=== PATIENT | male | born 1960 | race African-American/Black ===

== ENCOUNTER 2019-12-17 16:11 | Emergency (ER) | payer MEDICARE, MEDICAID, SELFPAY ==
[2019-12-17] VITALS (13 sets, daily range): BP systolic 124–154; BP diastolic 65–77; PULSE 66–85; RESP 16–21; TEMP 36.7–38.1; O2SAT 95–100
--- NOTE | ~2019-12-17 | CT_ITS ---
EXAMINATION: CT chest wo con DATE: 12/17/2019 19:08 INDICATION: Cough and shortness of breath TECHNIQUE: Computed tomography (CT) of the chest was performed without intravenous contrast. The dose -length product (DLP) was 416.39 mGy-cm. Automated exposure control and iterative reconstruction tech nique were employed. COMPARISON: 09/20/2017 FINDINGS: There are patchy groundglass and airspace opacities in the lungs with a lower lobe predomin ance. There is no pleural effusion or pneumothorax. No pathologically enlarged thoracic lymph nodes a re identified. The heart size is normal. Calcified left hilar and mediastinal lymph nodes are consist ent with old granulomatous disease. There is mild gynecomastia. There is mild thoracic spondylosis. P unctate calcifications in otherwise normal appearing liver and spleen likely represent healed granulo matous disease. IMPRESSION: 1. Patchy opacities of the lungs with a lower lobe predominance, likely pneumonia. Reviewed, dictated and finalized at location A. E KEEPER IMPRESSION: 1. Patchy opacities of the lungs with a lower lobe predominance, likely pneumon ia.
--- NOTE | 2019-12-17 16:22 | ED.FEVER ---
HPI - Fever General Chief Complaint: Fever Stated Complaint: fever/lethargic Time Seen by Provider: 12/17/19 16:16 Source: patient Mode of arrival: EMS Limitations: no limitations History of Present Illness HPI Narrative: Patient is a 59-year-old male complaining of fever and chills accompanied by cough that started today. Patient denies any chest pain, shortness of breath, abdominal pain, nausea vomiting, diarrhea or urinary symptoms. Related Data Allergies Allergy/AdvReac Type Severity Reaction Status Date / Time azithromycin Allergy Mild Unknown Verified 12/17/19 16:19 divalproex sodium Allergy Mild Unknown Verified 12/17/19 16:19 cetylpyridinium chloride Allergy Unknown Verified 12/17/19 16:19 [From Cepacol] Review of Systems Review of Systems: All systems reviewed & are unremarkable except as noted in HPI and below Constitutional: Constitutional: Denies body ache(s), Denies excessive sweating, Denies fatigue, Denies headache(s), Denies lethargy, Denies malaise, Denies weakness and Denies weight loss Eyes: Eyes: Denies blurry vision, Denies change in vision and Denies loss of vision ENT: Denies dizziness, Denies ear discharge, Denies headache(s), Denies lip swelling, Denies epistaxis, Denies nasal congestion, Denies neck pain, Denies throat swelling and Denies tongue swelling Cardiovascular: Cardiovascular: Denies chest pain, Denies chest pain at rest, Denies chest pain with activity, Denies diaphoresis, Denies rapid heart rate, Denies edema, Denies irregular heart rhythm, Denies lightheadedness, Denies palpitations, Denies dyspnea and Denies dyspnea on exertion Respiratory: Respiratory: Denies chest congestion, Reports cough, Denies hemoptysis, Denies dyspnea and Denies dyspnea on exertion Gastrointestinal: Gastrointestinal: Denies abdominal pain, Denies melena, Denies hematochezia, Denies diarrhea, Denies nausea, Denies vomiting and Denies hematemesis Musculoskeletal: Musculoskeletal: Denies abnormal gait, Denies deformity, Denies joint swelling, Denies limited range of motion, Denies neck pain and Denies numbness Neurologic: Denies Abnormal speech present, Denies abnormal gait, Denies confusion, Denies dizziness, Denies headache(s), Denies focal weakness, Denies loss of vision, Denies numbness, Denies Other visual disturbances, Denies Sensory deficit (Neuro) and Denies weakness Psychiatric: Psychiatric: Denies confusion, Denies depression, Denies auditory hallucinations, Denies homicidal ideation and Denies suicidal ideation Endocrine: Endocrine: Denies cold intolerance, Denies excessive sweating, Denies fatigue, Denies heat intolerance and Denies palpitations Hematologic/Lymphatic: Hematologic/Lymphatic: Denies easy bleeding and Denies easy bruising Allergic/Immunologic: Allergic/Immunologic: Denies lip swelling, Denies throat swelling and Denies tongue swelling Exam Const: General: cooperative, healthy appearing, comfortable, no acute distress, well developed, alert and awake; No confusion Orientation/consciousness: oriented to person, oriented to place, oriented to time, patient oriented x3 and No confusion Limitations: no limitations HENMT: Head: normal to inspection, normocephalic and atraumatic Ears: hearing grossly normal bilaterally, TM normal on the right and TM normal on the left General nose exam: Normal external nose present, Normal nares present and No nasal discharge present Face and sinus: normal facial exam Mouth: Yes Normal oral and palatal mucosa present, Yes lip normal, Yes tongue normal and Yes oropharynx normal Throat: posterior oropharynx normal, tonsils normal and uvula midline Eyes: General: appearance normal, both eyes and all related structures Pupils: Equal, round and reactive pupils present EOM: EOMs intact bilaterally Neck: Neck: normal visual inspection, full ROM, no lymphadenopathy and no meningeal signs Chest: Chest palpation & inspection: normal inspection of the chest Resp: Eff
[2019-12-17] MEDS: SODIUM CHLORIDE 0.9% IV 1,000 ML 999 ML IV CONT ×2 (16:32→18:45)
[2019-12-17 17:04] LABS: Basophils Percent Auto 0.3 % (0.2-1.2); Hematocrit 36.7 % (42.0-52.0); Hemoglobin 12.9 g/dL (14.0-18.0); Immature Granulocyte Absolute 0.01 K/mm3 (0.00-0.031); Immature Granulocyte Percent A 0.2 % (0-0.5); Lymphocytes Absolute Auto 0.29 K/mm3 (0.9-3.2); Mean Corpuscular HGB Conc 35.1 g/dl (32-36); Mean Corpuscular Hemoglobin 29.5 pg (26-34); Mean Platelet Volume 9.9 fl (7.4-10.4); Monocytes Absolute Auto 0.7 K/mm3 (0.1-0.6); Monocytes Percent Auto 11.4 % (2.6-8.5); Neutrophils Absolute Auto 4.8 K/mm3 (1.3-6.7); Neutrophils Percent Auto 83.1 % (45.5-73.1); Platelet Count Result 189 k/mm3 (150-375); Red Blood Count 4.37 M/mm3 (4.6-6.20); White Blood Count 5.8 K/mm3 (4.5-10.0)
[2019-12-17 17:17] LABS: Alanine Aminotransferase 27 U/L (4-50); Albumin Level 3.8 g/dL (3.5-5.1); Alkaline Phosphatase 68 U/L (38-126); Anion Gap 9 mmol/L (8-16); Aspartate Amino Transferase 24 U/L (17-59); Bilirubin,Total 0.2 mg/dL (0.2-1.3); Blood Urea Nitrogen 11 mg/dL (9-20); Calcium 8.3 mg/dL (8.4-10.2); Carbon Dioxide 30 mmol/L (22-30); Chloride 93 mmol/L (98-107); Estimated CRCL calculation 101 ml/min; Estimated Glomerular Filt Rate > 60; Glucose 98 mg/dL (75-110); Potassium 3.4 mmol/L (3.4-5.0); Sodium 132 mmol/L (137-145)
[2019-12-17 17:56] LABS: Lactic Acid Reflex 0.7 mmol/L (0.7-2.1)
[2019-12-17 18:06] LABS: CRP 2.6 mg/dL (<1.0)
--- NOTE | 2019-12-17 18:29 | ED.ABDPAIN ---
HPI - Abdominal Pain General Chief Complaint: Fever Stated Complaint: fever/lethargic Time Seen by Provider: 12/17/19 16:16 Source: patient Mode of arrival: EMS Limitations: no limitations Related Data Home Medications Medication Instructions Recorded Confirmed aripiprazole mg 12/17/19 atenolol-chlorthalidone tablet 12/17/19 clozapine mg 12/17/19 clozapine mg 12/17/19 diltiazem HCl PO 12/17/19 famotidine 12/17/19 fluticasone propionate [Flovent INHALATION 12/17/19 HFA] latanoprost drp 12/17/19 lisinopril 12/17/19 oxcarbazepine 12/17/19 Allergies Allergy/AdvReac Type Severity Reaction Status Date / Time azithromycin Allergy Mild Unknown Verified 12/17/19 16:19 divalproex sodium Allergy Mild Unknown Verified 12/17/19 16:19 cetylpyridinium chloride Allergy Unknown Verified 12/17/19 16:19 [From Cepacol] Course Course Emergency Course: Patient reexamined, now afebrile, denies any shortness of breath, chest tightness but admits occasional cough. Vital Signs Vital signs: Vital Signs Temperature 38.1 C H 12/17/19 16:10 Pulse Rate 85 12/17/19 16:10 Respiratory Rate 16 12/17/19 16:10 Blood Pressure 140/74 12/17/19 16:10 Pulse Oximetry 95 12/17/19 16:10 Temperature 38.1 C H 12/17/19 16:10 Pulse Rate 70 12/17/19 18:06 Respiratory Rate 18 12/17/19 18:06 Blood Pressure 124/65 12/17/19 18:06 Pulse Oximetry 95 12/17/19 18:06 MDM - Abdominal Pain MDM Narrative Medical decision making narrative: I have reviewed his labs and his CT results, based on the findings patient is highly suspicious for atypical pneumonia, Covid. His oxygen sat remained in the 96 to 99% on room air, he does not have elevated white count, he is not in any respiratory distress and is not complaining of any shortness of breath, patient can be discharged home on oral antibiotics. Differential Diagnosis Differential diagnosis: Likely other (Upper respiratory infection, acute bronchitis, pneumonia, Covid infection, urinary tract infection, sepsis) Lab Data Result diagrams: 12/17/19 16:54 12/17/19 16:54 Labs: Lab Results 12/17/19 12/17/19 12/17/19 Range/Units 16:54 16:54 17:27 WBC 5.8 (4.5-10.0) K/mm3 RBC 4.37 L (4.6-6.20) M/mm3 Hgb 12.9 L (14.0-18.0) g/dL Hct 36.7 L (42.0-52.0) % MCV 84.0 (80-100) fl MCH 29.5 (26-34) pg MCHC 35.1 (32-36) g/dl RDW 14.0 (11.5-14.5) % Plt Count 189 (150-375) k/mm3 MPV 9.9 (7.4-10.4) fl Immature Gran % (Auto) 0.2 (0-0.5) % Neut % (Auto) 83.1 H (45.5-73.1) % Lymph % (Auto) 5.0 L (18.3-44.2) % [place] % (Auto) 11.4 H (2.6-8.5) % Eos % (Auto) 0.0 (0-4.4) % Baso % (Auto) 0.3 (0.2-1.2) % Lymph # (Auto) 0.29 L (0.9-3.2) K/mm3 [place] # (Auto) 0.7 H (0.1-0.6) K/mm3 Eos # (Auto) 0.0 (0-0.3) K/mm3 Baso # (Auto) 0.0 (0.0-0.1) K/mm3 Abs Immat Gran (auto) 0.01 (0.00-0.031) K/mm3 Absolute Neuts (auto) 4.8 (1.3-6.7) K/mm3 Absolute Nucleated RBC 0.0 (0.0-0.012) K/mm3 Nucleated RBC % 0.0 (0.0-0.2) % Sodium 132 L (137-145) mmol/L Potassium 3.4 (3.4-5.0) mmol/L Chloride 93 L (98-107) mmol/L Carbon Dioxide 30 (22-30) mmol/L Anion Gap 9 (8-16) mmol/L BUN 11 (9-20) mg/dL Creatinine 0.90 (0.7-1.3) mg/dL Estim Creat Clear Calc 101 ml/min Estimated GFR > 60 (59 - ) Glucose 98 (75-110) mg/dL Lactic Acid 0.7 (0.7-2.1) mmol/L Calcium 8.3 L (8.4-10.2) mg/dL Total Bilirubin 0.2 (0.2-1.3) mg/dL AST 24 (17-59) U/L ALT 27 (4-50) U/L Alkaline Phosphatase 68 (38-126) U/L C-Reactive Protein 2.6 H (<1.0) mg/dL Total Protein 6.0 L (6.3-8.2) g/dL Albumin 3.8 (3.5-5.1) g/dL Discharge Plan Discharge Clinical Impression: Pneumonia Qualifiers: Pneumonia type: due to unspecified organism Laterality: unspecified laterality Lung location: unspecified part of jason
[2019-12-17 19:10] LABS: Add Urine Microscopic? YES; Appearance Urine Clear (Clear); Bilirubin Urine Negative (Negative); Blood Urine Negative (Negative); Color Urine Yellow (Yellow); Glucose Urine UA Negative (Negative); Ketones Urine Negative (Negative); Leukocyte Esterase Ur Negative LEU/UL (Negative); Mucus Urine Rare /lpf; Nitrate Urine Negative (Negative); Protein Urine Negative (Negative); Specific Grav Ur 1.012 (1.001-1.035); WBC Urine 0-3 /hpf
[2019-12-17] MEDS: ACETAMINOPHEN 325 MG TABLET 650 MG PO (20:23)
--- NOTE | 2019-12-17 23:03 | PC.NURSE ---
called [facility] to request transport. ETA 45 minute.
[2019-12-18 00:05] VITALS: BP 125/74; PULSE 70; RESP 18; TEMP 36.7; O2SAT 100
[2019-12-18 20:39] LABS: SARS-CoV-2 RNA PCR Positive
== END 2019-12-18 00:09 | disposition home or self-care (01) ==
PROVIDERS: Emergency Provider Emergency Medicine
DX: U07.1 COVID-19 (principal); J12.89 Other viral pneumonia
CPT/HCPCS: 36415; 51701; 71250; 80053; 81001; 83605; 85025; 86140; 87040; 87635; 96361; 96365; 96367; 96375; 99284; A9270; C9803; J0696; J1100; J1956; J7030; U0003

== ENCOUNTER 2021-04-18 07:29 | Outpatient (CLI) | payer OTHER, SELFPAY ==
--- NOTE | 2021-04-27 20:01 | WPDSLEEPSTUD ---
Sleep Study Date of Study: 04/18/21 Ordering Provider: Lara Montgomery, GRISTMILL OPERATOR- Interpreting Physician: Desiree Agrawal MD Sleep Study Type: Polysomnogram Height: 1.85 m Weight: 111.584 kg Body Mass Index: 32.4 Neck Circumference (inches): 16 [place]: 13 Reason for Sleep Study He is referred for non-restorative sleep, fatigue with a history of obstructive sleep apnea The patient does not think that he has a problem with his sleep. * 10/07/2011 Split night study with severe obstructive sleep apnea; AHI 38.9, 79% was sugey. He had multiple and severe oxygen desaturations with heavy snoring with a titration to 10 cm water pressure. Sleep History Eduardo Alas is a 61 year old man with a history of obstructive sleep apnea diagnosed several years ago, was on CPAP but quit using it. He said that the tubing became full of water and was choking him. This is why he quit using it. He wakes up during the night including in the breaker off hours. He does not awaken from sleep feeling short of breath, denies awakening at night with heartburn, belching or coughing. He rarely snores and when he does snore, it is never loud enough that others complain about it. He rarely has trouble sleeping with a cold. He does not wake up gasping for breath at night. He does not have breathing problems at night observed by others. He rarely sweats excessively at night. He rarely notices his heart pounding or beating irregularly at night. He rarely falls asleep during the day. He constantly falls asleep involuntarily but never while driving. He occasionally has loss of muscle tone with strong emotion. He rarely has daytime difficulties due to excessive sleepiness. He does not feel paralyzed on waking or falling asleep, does not have vivid dreamlike scenes on waking or falling asleep and does not feel afraid to go to sleep. He occasionally has nightmares. He rarely remembers his dreams. He occasionally has racing thoughts. He always has feelings of sadness or depression. He occasionally has anxiety. He occasionally has muscular tension. He does not notice parts of his body jerking, he does not kick at night and he does not have crawling or aching feelings in his legs. He does not have any kind of leg pain during the night. He does not have morning jaw pain. He does not grind his teeth during sleep. He occasionally is bothered by pain during the day. He is not awakened by pain during the night. He does not wake up feeling stiff in the morning, does not wake up with sore or achy muscles and does not wake up with pain in the neck and spine. He has memory problems and fatigue. Normal bedtime on his written questionnaire is 5:00 p.m. however his office note from [employer] [employer] indicates that that he goes to bed between 9:00 p.m. and 10:00 p.m., falls asleep easily however wakes almost every night between 1:00 a.m. and 4:00 a.m.. When he wakes during the night, he does laundry or other household tasks. At times, he paints or draws. He rarely sleeps through the night. He estimates until 5:30 a.m. which is his preferred wake-up time. On some nights he is able to fall asleep again. He works Mondays through Fridays. He does fall asleep in to unintentionally if he is watching television or after a large meal. He takes naps on his days off. He has nocturia every night. Habits: He vapes nicotine. He does not use alcohol or illicit drugs. [facility] Past Medical History Medical History (Updated 04/27/21 @ 20:37 by Desiree Agrawal MD) Asthma-COPD overlap syndrome GERD (gastroesophageal reflux disease) Hepatitis C Hyperlipidemia Hypertension Obstructive sleep apnea Paranoid schizophrenia Social History Social History (Updated 04/27/21 @ 20:27 by Desiree Agrawal MD) Social History: He lives in a fdc. He cleans office 5 days a week. Smoking status: Former smoker Additional smoking assessment comments: started smoking age 11, stopped @51
[2021-04-27 20:46] VITALS: BMI 32.4
== END 2021-04-19 06:33 | disposition home or self-care (01) ==
LOC: ANHCSM 07:30
PROVIDERS: Visit Provider Nurse Practitioner
DX: G47.33 Obstructive sleep apnea (adult) (pediatric) (principal); Z72.821 Inadequate sleep hygiene
CPT/HCPCS: 95810

== ENCOUNTER 2022-10-20 13:02 | Emergency (ER) | payer OTHER, SELFPAY ==
--- NOTE | ~2022-10-20 | XR_ITS ---
XR knee LT 3V 10/20/2022 15:16 Indication: Knee pain after fall Procedure: 3 views left knee Comparison: No prior studies for comparison. Findings: No fracture, subluxation or dislocation. Mild osteoarthritis. No significant soft tissue ab normality. No joint effusion. Impression: 1: No acute fracture. Reviewed, dictated and finalized at location L. Impression: 1: No acute fracture.
--- NOTE | ~2022-10-20 | XR_ITS ---
XR knee RT 3V 10/20/2022 15:16 Indication: Knee pain after fall Procedure: 3 views right knee Comparison: 05/03/2018 Findings: Chronic large joint effusion. New area of heterotopic ossification superior to the patellof emoral compartment. There is moderate tricompartment osteoarthritis which has progressed since prior examination. No acute fracture or traumatic malalignment. Impression: 1: No acute bone or joint abnormality. 2: Chronic large joint effusion. 3: Progression of moderate tricompartment osteoarthritis. Reviewed, dictated and finalized at location L. Impression: 1: No acute bone or joint abnormality. 2: Chronic large joint effusion. 3: Progression of moderate tricompartment osteoarthritis.
[2022-10-20 13:34] VITALS: BP 103/49; PULSE 65; RESP 14; TEMP 36.6; O2SAT 98
[2022-10-20 14:09] VITALS: PULSE 70; RESP 18; TEMP 36.8; O2SAT 98
[2022-10-20 14:19] VITALS: BP 109/65
--- NOTE | 2022-10-20 16:21 | ED.FALL ---
HPI - Fall General Chief Complaint: Fall Stated Complaint: multiple falls Time Seen by Provider: 10/20/22 14:20 History of Present Illness HPI Narrative: 62-year-old male presented the emergency department for evaluation after having several ground-level falls where he injured his knee. Patient reports that he had 2 falls where he landed on his knees. Patient denies having any lightheaded dizziness chest pain or shortness of breath as a reason for the falls. Patient states he does felt that his legs gave out. Patient states he went down to his knees but did not strike his head had no loss of consciousness. Patient does have a history of chronic osteoarthritis and has had injections in the right knee previously. Related Data Home Medications Medication Instructions Recorded Confirmed aripiprazole 20 mg tablet mg 12/17/19 atenolol 50 mg-chlorthalidone 25 tablet 12/17/19 mg tablet clozapine 100 mg tablet mg 12/17/19 clozapine 25 mg tablet mg 12/17/19 diltiazem HCl 240 mg PO 12/17/19 capsule,extended release 24 hr famotidine 40 mg tablet 12/17/19 fluticasone propionate 110 inhalation 12/17/19 mcg/actuation HFA aerosol inhaler (Flovent HFA) latanoprost 0.005 % eye drops drp 12/17/19 lisinopril 10 mg tablet 12/17/19 oxcarbazepine 600 mg tablet 12/17/19 Allergies Allergy/AdvReac Type Severity Reaction Status Date / Time azithromycin Allergy Mild Unknown Verified 10/20/22 14:17 divalproex sodium Allergy Mild Unknown Verified 10/20/22 14:17 cetylpyridinium chloride Allergy Unknown Verified 10/20/22 14:17 [From Cepacol] Review of Systems Review of Systems: All systems reviewed & are unremarkable except as noted in HPI and below PMFSH Past Medical History Medical History (Updated 10/21/22 @ 00:00 by Background Daemcandida) Asthma-COPD overlap syndrome GERD (gastroesophageal reflux disease) Hepatitis C Hyperlipidemia Hypertension Obstructive sleep apnea Paranoid schizophrenia Social History Social History (Updated 04/27/21 @ 20:27 by Desiree Agrawal MD) Social History: He lives in a snf. He cleans office 5 days a week. Smoking status: Former smoker Additional smoking assessment comments: started smoking age 11, stopped @51, 40 years total; vapes nicotine daily Alcohol use details: none at present Living arrangements: snf Gender identity (if verbalized by the patient): Male Exam Narrative: APPEARANCE: Well appearing, no pain, no distress, well-nourished. HEAD: normocephalic, atraumatic. EYES: PERRLA/EOMI, conjunctivae clear. NOSE: Normal no drainage NECK: Supple. No adenopathy, no masses. RESPIRATORY: Airway patent, respirations nonlabored. Clear to auscultation bilaterally, no rales, rhonchi, wheezing. CARDIOVASCULAR: Regular rate and rhythm without murmurs rubs or gallops. ABDOMINAL: Soft, nontender, nondistended, normal bowel sounds MUSCULOSKELETAL: Bilateral knee pain with no deformity, no tenderness to palpation NEURO: Alert. Cranial nerves II through XII intact. Good gait. Good coordination SKIN: Warm, dry. Normal Color Course Course Emergency Course: 62-year-old male presenting to the emergency department for evaluation of bilateral knee pain. X-ray showed no acute fracture or dislocation. Patient reports he does not have pain in his knees. Patient was advised to use a walker and was provided a prescription for a walker. Vital Signs Vital signs: Vital Signs Temperature 97.8 F 10/20/22 13:34 Pulse Rate 65 10/20/22 13:34 Respiratory Rate 14 10/20/22 13:34 Blood Pressure 103/49 L 10/20/22 13:34 Pulse Oximetry 98 10/20/22 13:34 Oxygen Delivery Room Air 10/20/22 13:34 Temperature 98.3 F 10/20/22 14:09 Pulse Rate 70 10/20/22 16:35 Respiratory Rate 16 10/20/22 16:35 Blood Pressure 144/85 H 10/20/22 16:35 Pulse Oximetry 96 10/20/22 16:35 Oxygen Delivery Room Air 10/20/22 13:34 MDM - Fall Diffe
[2022-10-20 16:35] VITALS: BP 144/85; PULSE 70; RESP 16; O2SAT 96
== END 2022-10-20 16:35 | disposition home or self-care (01) ==
PROVIDERS: Emergency Provider Emergency Medicine; PCP Nurse Practitioner Family
DX: S89.92XA Unspecified injury of left lower leg, initial encounter (principal); S89.91XA Unspecified injury of right lower leg, initial encounter; J44.9 Chronic obstructive pulmonary disease, unspecified; E78.5 Hyperlipidemia, unspecified; B19.20 Unspecified viral hepatitis C without hepatic coma; I10 Essential (primary) hypertension; M17.11 Unilateral primary osteoarthritis, right knee; K21.9 Gastro-esophageal reflux disease without esophagitis; G47.33 Obstructive sleep apnea (adult) (pediatric); F20.0 Paranoid schizophrenia; F17.290 Nicotine dependence, other tobacco product, uncomplicated; W18.39XA Other fall on same level, initial encounter
CPT/HCPCS: 73562; 99284